=== PATIENT | female | born 1995 | race African-American/Black ===

== ENCOUNTER 2019-07-27 09:38 | Emergency (ER) | payer OTHER ==
[~2019-07-27] VITALS: Ht 157.5 cm; Wt 63.2 kg
[~2019-07-27 09:38] MED LIST: NOCURR
[2019-07-27 12:29] VITALS: BP 126/83
== END 2019-07-27 12:56 | disposition home or self-care (01) ==
LOC: EMS 09:39
DX: S00.12XA Contusion of left eyelid and periocular area, initial encounter (principal); W01.190A Fall on same level from slipping, tripping and stumbling with subsequent striking against furniture, initial encounter; Y93.89 Activity, other specified; Y92.89 Other specified places as the place of occurrence of the external cause; Y99.8 Other external cause status